=== PATIENT | male | born 1975 | race Two or more races ===

== ENCOUNTER 2024-11-10 15:14 | Inpatient (IN) | payer MEDICAID, OTHER ==
[~2024-11-10] VITALS: Ht 175.3 cm; Wt 80.0 kg
--- NOTE | 2024-11-10 16:07 | DVH ---
Exam: CT CT AB PEL WO CON-NO ORAL OR IV History: abd pain Comparison Study: None available at time of dictation. TECHNIQUE: Multidetector CT of the abdomen was performed from lung bases to pubic symphysis. Imaging was performed without IV contrast. Axial, coronal and sagittal multiplanar reformats were obtained fr om the axial data set by the technologist. Radiation Dose Information: CT Dose: CTDI volume is 8.5 mGy. Dose-length product is 464.23 mGy*cm FINDINGS: Evaluation of solid organs is limited due to lack of intravenous contrast use. Findings: Lung Bases: No acute or significant lung base finding. Normal heart size. No pleural or pericardial effusion. Liver: The liver is normal in size. No focal lesions. Gallbladder and Biliary Tree: Questionable poorly calcified gallstones consider gallbladder ultrasoun d for further evaluation Spleen: Unremarkable Pancreas: The pancreas is grossly normal in appearance. Adrenal Glands: Unremarkable Kidneys: 3-4 mm nonobstructing left renal calculus mild right hydronephrosis Bladder: 3-4 mm calculus in the bladder on the right consistent with recently passed calculus Bowel: The stomach is grossly normal in appearance. Small bowel and colon are normal in caliber and d istribution. The appendix is not visualized; however, no secondary findings of acute appendicitis id entified. Ascites: Absent Lymphadenopathy: No mesenteric, retroperitoneal or periportal lymphadenopathy. Abdominal Wall and Mesentery: Unremarkable. Vasculature: The visualized abdominal aorta is normal in size and caliber. Evaluation of abdominal a nd pelvic vessels is limited due to lack of intravenous contrast. Pelvic Organs: Unremarkable Musculoskeletal: No aggressive focal bony lesions, acute fractures or dislocation. Soft tissues: Unremarkable IMPRESSION: 1. Mild right hydronephrosis with 3-4 mm calculus in the bladder on the right consistent with a recen tly passed calculus. 2. 3-4 mm nonobstructing calculus left kidney 3. Questionable poorly calcified gallstones if right upper quadrant pain is of clinical concern recom mend gallbladder ultrasound. 4. No findings of bowel obstruction. 5. Stool noted throughout the colon Radiation optimization: All CT scans at this facility use at least one of these dose optimization te chniques: automated exposure control mA and/or kV adjustment per patient size (includes targeted exa ms where dose is matched to clinical indication) or iterative reconstruction.
[2024-11-10 16:10] LABS: Basophils # (auto) 0 10 ^3/uL (0-0.2); Basophils % (auto) 0.4 % (0.0-2.0); Eosinophils # (auto) 0.5 10 ^3/uL (0-0.8); Hematocrit 46.4 % (41.0-53.0); Hemoglobin 15.4 g/dL (13.5-17.5); Lymphocytes # (auto) 1.7 10 ^3/uL (0.4-5.4); Mean Corpuscular Hemoglobin 27.6 pg (28.0-32.0); Mean Corpuscular Hgb Conc. 33.2 g/dL (32.0-36.0); Monocytes # (auto) 0.8 10 ^3/uL (0-1.3); Monocytes % (auto) 7.1 % (0.0-12.0); Neutrophils # (auto) 8.3 10 ^3/uL (1.6-8.6); Neutrophils % (auto) 73.5 % (37.0-80.0); Nucleated Red Blood Cells % 0.2 %; Platelet Count (auto) 261 10^3/uL (140-450); Red Blood Cells 5.59 10^6/uL (4.5-5.90); Red Cell Distribution Width 13.4 % (11.8-14.3); White Blood Cell 11.3 10^3/uL (4.4-10.8)
[2024-11-10 16:31] LABS: Anion Gap 7 (5-15); BUN/Creatinine Ratio 13.5 (10.0-20.0); Bilirubin, Total 0.5 mg/dL (0.2-1.0); Calcium 10.1 mg/dL (8.7-10.4); Carbon Dioxide 27 mmol/L (20-31); Chloride 105 mmol/L (98-107); Lipase 34 U/L (12-53); Sodium 139 mmol/L (136-145)
[2024-11-10 16:34] LABS: Alanine Aminotransferase 59 U/L (7-40); Albumin 5.1 g/dL (3.2-4.8); Alkaline Phosphatase 136 U/L (46-116); Aspartate Aminotransferase 49 U/L (13-40); Blood Urea Nitrogen 23 mg/dL (9-23); Glucose 113 mg/dL (74-106); Total Protein 8.5 g/dL (5.7-8.2)
--- NOTE | 2024-11-10 16:49 | ED.PDOC ---
General HPI Comments Christiano: HPI: Poor Historian. 49-year-old male presents to emergency department for right-sided abdominal pain right flank pain right anterior abdomen pain constant that started last night and got worse today. Patient has associated nausea and vomiting no diarrhea. Patient appears uncomfortable. No alleviating or precipitating factors. Past Medical History: Denies Past Surgical History: Denies REVIEW OF SYSTEMS: CONSTITUTIONAL: Denies acute: fever, diaphoresis, chills, HEAD: Denies acute: headache, photophobia Eyes: Denies acute: Double vision, vision loss, eye pain, eye discharge. EARS: Denies acute: tinnitus, hearing loss, ear discharge, ear pain, THROAT: Denies acute: sore throat, swelling, difficulty swallowing , pain with swallowing, change in voice. NECK: Denies acute: neck pain, neck swelling, stiff neck. HEART: Denies acute : chest pain, palpitations, LUNGS: Denies acute: SOB, wheezing, cough, hemoptysis ABDOMEN: Denies acute: diarrhea, melena , hematemesis, hematochezia SKIN: Denies acute: rash, redness, lesions, itchiness. EXTREMITIES: Denies acute: calf pain, numbness, tingling, weakness, denies pain in extremity. Denies acute: Low back pain. Neuro: Denies acute: focal neurological deficit, motor or sensory focal neurological deficit, tremors, seizure like activity, confusion, dizziness, change in mental status, loss of bowel or bladder function, cauda equina like symptoms. : Denies acute: dysuria, hematuria, increase in urinary frequency. PSYCH: Denies acute: hallucination, suicidal ideation, homicidal ideation. PHYSICAL EXAM: General: ---moderate to severe-----acute distress, awake and alert. Head: normocephalic, atraumatic. Neck: supple, trachea is midline, no swelling. Throat: Normal phonation. Eyes:, no erythema, no purulent discharge, no proptosis, no icterus. Heart: regular rate, regular rhythm, no significant murmur appreciated. Lungs: no apparent respiratory distress, Able to speak in full sentences. No wheezing, no rhonchi, no crackles. No stridors Clear to auscultation bilaterally. Abdomen: Right-sided tender to palpation, non distended, soft, no guarding, no rebound, + bowel sounds. Neuro: Awake, Alert, oriented to name, self, situation, follows commands GCS=15. Speech is normal. Skin: no petechia, no purpura, no cyanosis, non-pale, not jaundice. Lower extremities: --no - Pitting edema no deformity, no focal swelling, no calf TTP. Makes eye contact. moves all four extremities. Face: no apparent facial droop. Right CVA tenderness to percussion . Ambulating in the ED independently. ED COURSE: Chief Complaint: Abdominal Pain Time Seen by MD: 15:21 Reviewed notes: Nurses Notes, Allergies Allergies: Coded Allergies: NO KNOWN ALLERGIES (Unverified , 11/10/24) Home Meds Active Scripts Tamsulosin Hcl (Tamsulosin Hcl) 0.4 Mg Cap, 0.4 MG PO DAILY for 30 Days, #30 CAP Prov:NENA CARRANZA 11/12/24 Ibuprofen (Ibuprofen) 400 Mg Tab, 400 MG PO BID for 5 Days, #10 TAB Prov:NENA CARRANZA 11/12/24 Ciprofloxacin Hcl (Cipro) 500 Mg Tab, 500 MG PO BID for 7 Days, #14 TAB Prov:NENA CARRANZA 11/12/24 Information Source: Patient Mode of Arrival: Ambulatory Was a procedure done? Was a procedure done?: No Differential Diagnosis Kidney stone (Female): N/A Kidney stone (Male): Other (Flank Pain;DDX include Nephrolethiasis, obstructive uropathy, kidney cancer, renal infarct, intraabdominal neoplasm, lower lobe pneumonia, retroperitoneal hemorrhage, pancreatitis, aneurysm, dissection, musculoskeletal, rib contusion/trauma, hematoma, PYLONEPHRITIS, muscle strain, spinal disease. IN A FEMALE) X-Ray, Labs, Meds, VS Vital Signs Date Time Temp Pulse Resp B/P (MAP) Pulse Ox O2 Delivery O2 Flow Rate FiO2 11/11/24 00:20 98.7 82 20 130/70 (90) 95 98.7 11/10/24 21:06 74 20 100 Room Air* 0 21 11/10/24 20:13 142/91 11/10/24 19:39 98.7 73 20 142/96 (111) 95 98.7 11/10/24 15:35 98.5 71 22 142/95 (111) 95 98.5 Lab Test 11/10/24 21:25 11/10/24 18:15 11/10/24 17:34 11/10/24 15:57 Range/Units Troponin I High Sensitivity 64 *H 68 *H 75 *H </=54 ng/L Urine Color Yellow Yellow Urine Clarity Clear Clear Urine pH 6.0 5.0-9.0 Urine Specific [place] 1.039 H 1.001-1.035 Urine Protein 1+ H Negative Urine Ketones Trace Negative Urine Blood 2+ H Negative /uL Urine Nitrite Negative Negative Urine Bilirubin Negative Negative Urine Urobilinogen Normal Negative mg/dL Urine Leukocyte Esterase Negative Negative /uL Urine RBC 17 0 - 3 /hpf Urine Microscopic WBC 2 0-3 /HPF Urine Squamous Epithelial Cells None seen <5 /hpf Urine Bacteria None seen None Seen /hpf Urine Mucus Few None Seen Urine Glucose Normal Normal mg/dL White Blood Count 11.3 H 4.4-10.8 10^3/uL Red Blood Count 5.59 4.5-5.90 10^6/uL Hemoglobin 15.4 13.5-17.5 g/dL Hematocrit 46.4 41.0-53.0 % Mean Corpuscular Volume 83.0 80.0-100.0 fL Mean Corpuscular Hemoglobin 27.6 L 28.0-32.0 pg Mean Corpuscular Hemoglobin Concent 33.2 32.0-36.0 g/dL Red Cell Distribution Width 13.4 11.8-14.3 % Platelet Count 261 140-450 10^3/uL Mean Platelet Volume 8.1 6.9-10.8 fL Neutrophils (%) (Auto) 73.5 37.0-80.0 % Lymphocytes (%) (Auto) 15.0 10.0-50.0 % Monocytes (%) (Auto) 7.1 0.0-12.0 % Eosinophils (%) (Auto) 4.0 0.0-7.0 % Basophils (%) (Auto) 0.4 0.0-2.0 % Neutrophils # (Auto) 8.3 1.6-8.6 10 ^3/uL Lymphocytes # (Auto) 1.7 0.4-5.4 10 ^3/uL Monocytes # (Auto) 0.8 0-1.3 10 ^3/uL Eosinophils # (Auto) 0.5 0-0.8 10 ^3/uL Basophils # (Auto) 0 0-0.2 10 ^3/uL Nucleated Red Blood Cells 0.2 % Sodium Level 139 136-145 mmol/L Potassium Level 4.0 3.5-5.1 mmol/L Chloride Level 105 98-107 mmol/L Carbon Dioxide Level 27 20-31 mmol/L Anion Gap 7 5-15 Blood Urea Nitrogen 23 9-23 mg/dL Creatinine 1.70 H 0.700-1.30 mg/dL Glomerular Filtration Rate Calc 49 >90 mL/min BUN/Creatinine Ratio 13.5 10.0-20.0 Serum Glucose 113 H 74-106 mg/dL Lactic Acid Level 1.5 0.4-2.0 mmol/L Calcium Level 10.1 8.7-10.4 mg/dL Total Bilirubin 0.5 0.2-1.0 mg/dL Aspartate Amino Transferase (AST) 49 H 13-40 U/L Alanine Aminotransferase (ALT) 59 H 7-40 U/L Alkaline Phosphatase 136 H 46-116 U/L Total Protein 8.5 H 5.7-8.2 g/dL Albumin 5.1 H 3.2-4.8 g/dL Lipase 34 12-53 U/L [place] [id number] Ph: [phone] DIAGNOSTIC IMAGING Diagnostic Imaging Report : [id number] Signed PATIENT: SHARMIN MARX ACCT: [id number] UNIT: [id number] : 1975 LOC: ER ROOM / BED: / AGE / SEX: 49 / M ADM STATUS: REG ER SERVICE 1531 ORDERING PHYSICIAN: TAMIE GARCÍA DO PROCEDURE(s): ABPL - CT AB PEL WO CON-NO ORAL OR IV REASON: abd pain ORDER NUMBER(s): [id number], ACCESSION NUMBER(s): [id number] Exam: CT CT AB PEL WO CON-NO ORAL OR IV History: abd pain Comparison Study: None available at time of dictation. TECHNIQUE: Multidetector CT of the abdomen was performed from lung bases to pubic symphysis. Imaging was performed without IV contrast. Axial, coronal and sagittal multiplanar reformats were obtained from the axial data set by the technologist. Radiation Dose Information: CT Dose: CTDI volume is 8.5 mGy. Dose-length product is 464.23 mGy*cm FINDINGS: Evaluation of solid organs is limited due to lack of intravenous contrast use. Findings: Lung Bases: No acute or significant lung base finding. Normal heart size. No pleural or pericardial effusion. Liver: The liver is normal in size. No focal lesions. Gallbladder and Biliary Tree: Questionable poorly calcified gallstones consider gallbladder ultrasound for further evaluation Spleen: Unremarkable Pancreas: The pancreas is grossly normal in appearance. Adrenal Glands: Unremarkable Kidneys: 3-4 mm nonobstructing left renal calculus mild right hydronephrosis Bladder: 3-4 mm calculus in the bladder on the right consistent with recently passed calculus Bowel: The stomach is grossly normal in appearance. Small bowel and colon are normal in caliber and distribution. The appendix is not visualized; however, no secondary findings of acute appendicitis identified. Ascites: Absent Lymphadenopathy: No mesenteric, retroperitoneal or periportal lymphadenopathy. Abdominal Wall and Mesentery: Unremarkable. Vasculature: The visualized abdominal aorta is normal in size and caliber. Evaluation of abdominal and pelvic vessels is limited due to lack of intravenous contrast. Pelvic Organs: Unremarkable Musculoskeletal: No aggressive focal bony lesions, acute fractures or dislocation. Soft tissues: Unremarkable IMPRESSION: 1. Mild right hydronephrosis with 3-4 mm calculus in the bladder on the right consistent with a recently passed calculus. 2. 3-4 mm nonobstructing calculus left kidney 3. Questionable poorly calcified gallstones if right upper quadrant pain is of clinical concern recommend gallbladder ultrasound. 4. No findings of bowel obstruction. 5. Stool noted throughout the colon Radiation optimization: All CT scans at this facility use at least one of these dose optimization techniques: automated exposure control mA and/or kV adjustment per patient size (includes targeted exams where dose is matched to cl inical indication) or iterative reconstruction. ATED BY: ANNA SANTA Jr., DO DICTATED DATE/TIME: 11/10/241604 SIGNED BY: ANNA SANTA Jr., SIGNED DATE/TIME: 11/10/241604 CC: Time of 1ST Reevaluation: 17:28 (Urinalysis still pending) Reevaluation 1ST: Improved Patient Education/Counseling: Diagnosis, Treatment Family Education/Counseling: Other Comments Patient presented with the above HPI.------workup was initiated. patient was found with the above mentioned diagnosis. the following medications were ordered: please refer to order lists of meds and tests obtained by myself Dr. García. Patient ED course and VS have been stabilized. Patient has been reassessed in the ED and remained in a stable condition. Pertinent incidental findings were discussed with the patient and/or family. Patient/family voices understanding and is agreeable with plan. Patient has been observed in the ED adequate length of time to insure improvement/stability. Escalation of care considered: Consideration of escalation to observation or admission Patient was found with incidental elevation of his troponin. Patient was given aspirin. Patient was ADMITTED to the medicine team for further evaluation and treatment of their presentation. All the reports of any imaging studies that were ordered by myself were reviewed by myself. Departure 1 Departure Time of Disposition: 17:27 Impression: Primary Impression: Hydronephrosis, right Additional Impressions: Hydronephrosis with renal and ureteral calculous obstruction Elevated troponin Disposition: ADMITTED INPATIENT Admit to: Tele Condition: Guarded Additional Instructions: [place] [address] Ph: [phone] DIAGNOSTIC IMAGING Diagnostic Imaging Report : [id number] Signed PATIENT: SHARMIN MARX ACCT: [id number] UNIT: [id number] : 1975 LOC: ER ROOM / BED: / AGE / SEX: 49 / M ADM STATUS: REG ER SERVICE 1531 ORDERING PHYSICIAN: TAMIE GARCÍA DO PROCEDURE(s): ABPL - CT AB PEL WO CON-NO ORAL OR IV REASON: abd pain ORDER NUMBER(s): [id number], ACCESSION NUMBER(s): [id number] Exam: CT CT AB PEL WO CON-NO ORAL OR IV History: abd pain Comparison Study: None available at time of dictation. TECHNIQUE: Multidetector CT of the abdomen was performed from lung bases to pubic symphysis. Imaging was performed without IV contrast. Axial, coronal and sagittal multiplanar reformats were obtained from the axial data set by the technologist. Radiation Dose Information: CT Dose: CTDI volume is 8.5 mGy. Dose-length product is 464.23 mGy*cm FINDINGS: Evaluation of solid organs is limited due to lack of intravenous contrast use. Findings: Lung Bases: No acute or significant lung base finding. Normal heart size. No pleural or pericardial effusion. Liver: The liver is normal in size. No focal lesions. Gallbladder and Biliary Tree: Questionable poorly calcified gallstones consider gallbladder ultrasound for further evaluation Spleen: Unremarkable Pancreas: The pancreas is grossly normal in appearance. Adrenal Glands: Unremarkable Kidneys: 3-4 mm nonobstructing left renal calculus mild right hydronephrosis Bladder: 3-4 mm calculus in the bladder on the right consistent with recently passed calculus Bowel: The stomach is grossly normal in appearance. Small bowel and colon are normal in caliber and distribution. The appendix is not visualized; however, no secondary findings of acute appendicitis identified. Ascites: Absent Lymphadenopathy: No mesenteric, retroperitoneal or periportal lymphadenopathy. Abdominal Wall and Mesentery: Unremarkable. Vasculature: The visualized abdominal aorta is normal in size and caliber. Evaluation of abdominal and pelvic vessels is limited due to lack of intravenous contrast. Pelvic Organs: Unremarkable Musculoskeletal: No aggressive focal bony lesions, acute fractures or dislocation. Soft tissues: Unremarkable IMPRESSION: 1. Mild right hydronephrosis with 3-4 mm calculus in the bladder on the right consistent with a recently passed calculus. 2. 3-4 mm nonobstructing calculus left kidney 3. Questionable poorly calcified gallstones if right upper quadrant pain is of clinical concern recommend gallbladder ultrasound. 4. No findings of bowel obstruction. 5. Stool noted throughout the colon Radiation optimization: All CT scans at this facility use at least one of these dose optimization techniques: automated exposure control mA and/or kV adjustment per patient size (includes targeted exams where dose is matched to clinical indication) or iterative reconstruction. ATED BY: ANNA SANTA Jr., DO DICTATED DATE/TIME: 11/10/241604 SIGNED BY: ANNA SANTA Jr., SIGNED DATE/TIME: 11/10/241604 CC: e-Prescriptions Tamsulosin Hcl (Tamsulosin Hcl) 0.4 Mg Cap 0.4 MG PO DAILY for 30 Days, #30 CAP Prov: NENA CARRANZA RESIDENT 11/12/24 Ibuprofen (Ibuprofen) 400 Mg Tab 400 MG PO BID for 5 Days, #10 TAB Prov: NENA CARRANZA RESIDENT 11/12/24 Ciprofloxacin Hcl (Cipro) 500 Mg Tab 500 MG PO BID for 7 Days, #14 TAB Prov: NENA CARRANZA RESIDENT 11/12/24 Discharged With: Self Critical Care Note Critical Care Time?: Yes (45 min-critical care time only) I personally scribed for TAMIE GARCÍA DO ([email or web address]) on 11/10/24 at 21:00. Electronically submitted by Ashley Larson ([email or web address]). TAMIE GARCÍA DO Nov 10, 2024 16:49
[2024-11-10 19:18] LABS: Urine Bacteria None Seen /hpf (None Seen)
[2024-11-10 19:40] LABS: Urine Blood 2+ /uL (Negative); Urine Clarity Clear (Clear); Urine Color Yellow (Yellow); Urine Mucus FEW (None Seen); Urine Protein, UAD 1+ (Negative); Urine Specific Gravity 1.039 (1.001-1.035); Urine Squamous Epithelial Cell None Seen /hpf (<5); Urine Urobilinogen Normal (Negative); Urine WBC 2 /HPF (0-3)
[2024-11-10] MEDS: TAMSULOSIN HYDROCHLORIDE 0.4 MG CAP PO ONE (19:46)
[2024-11-10] MEDS: ASPirin-EC 325mg tab PO ONE (19:46)
[2024-11-10] MEDS: ONDANSETRON HCL 4 MG/2 ML VIAL IV ONE (20:10)
[2024-11-10] MEDS: SODIUM CHLORIDE 0.9% 1,000 ML IV ONE (20:10)
[2024-11-10] MEDS: fentaNYL CITRATE 100 MCG/2 ML VL IV ONE (20:13)
[2024-11-10 21:06] VITALS: PULSE 74; RESP 20; O2SAT 100
[2024-11-11] VITALS (9 sets, daily range): BP systolic 103–124; BP diastolic 60–88; PULSE 63–77; RESP 17–20; TEMP 98–98.8; O2SAT 96–98
[2024-11-11] MEDS ORDERED: NITROGLYCERIN 0.4 MG SL TAB SL PRN (03:00)
[2024-11-11] MEDS ORDERED: MORPHINE SULFATE INJ 2 MG/ml SYRG IV PRN (03:00)
[2024-11-11] MEDS: KETOROLAC TROMETH 30 MG/ML 1ML VIAL IV PRN (04:55)
[2024-11-11] MEDS: LACTATED RINGER'S 1,000 ML IV SCH (05:00)
--- NOTE | 2024-11-11 05:17 | DVHHPRES ---
History of Present Illness Resident Creating Document: KECIA ALEXANDER RESIDENT Reason for Visit: RUQ History of Present Illness This is a 49-year-old male with no known past medical history presented to the ER today with pain that originated on the right upper quadrant radiates to the back and to the groin area. Pain started about few days ago and progressive y became worse. Patient described the pain as rated 8/10 with an associated nausea and vomiting but no diarrhea. At the time of my investigation with the patient, his pain has subsided although he seems unwell. Initial lab showed elevated WBC, elevated heart rate over it blood pressure otherwise unremarkable. Past Medical History: None Past Surgical History: None Family history: noncontributory: Social history: lives at home, does not drink or smoke Review of Systems Review of Systems Constitutional: Denies fever, chills; feeling of malaise HEENT: Denies headache, ear pain, ear discharges, conjunctivitis, nasal discharge throat pain Cardiovascular: Denies chest pain, palpitation, orthopnea, PND, or pedal edema Respiratory: Denies shortness of breath, cough, sputum production, hemoptysis, GI: RUQ abdominal pain, nausea, vomiting; diarrhea, hematemesis, hematochezia, : Denies frequency, urgency, hematuria, Endocrine: Denies unintentional weight gain or weight loss, feeling of hot flashes, [place]: Denies easy bruising, bleeding disorders, epistaxis Musculoskeletal: Denies joint pains, muscle aches Psych: No evidence of depression, ana, suicidal ideation Allergies: Coded Allergies: NO KNOWN ALLERGIES (Unverified , 11/10/24) Medications Current Medications Medications Dose Ordered Sig/Rachele Route Start Time Stop Time Status Last Admin Dose Admin Nitroglycerin 0.4 mg Q5MINP PRN SL 11/11/24 03:00 Morphine Sulfate 2 mg Q30M PRN IV 11/11/24 03:00 Exam Vital Signs Vital Signs Date Time Temp Pulse Resp B/P (MAP) Pulse Ox O2 Delivery O2 Flow Rate FiO2 11/11/24 04:20 98.4 74 18 124/88 (100) 96 98.4 11/10/24 21:06 Room Air* 0 21 Exam General Appearance: Alert, Oriented X3, Cooperative, moderate acute distress HEENT: Atraumatic, PERRLA, EOMI, Mucous membrane moist/pink Respiratory: Clear to auscultation, Normal air movement Cardiovascular: Regular rate, Normal S1, Normal S2, No murmurs, no chest wall tenderness Abdominal: Tender in the RUQ plane and right cva, reduced bowel sounds present, no scars noted Extremities: No clubbing, No cyanosis, No edema, Normal pulses, No tenderness/swelling Skin: No rashes, No breakdown, No significant lesion Neuro: Normal gait, Normal speech, Strength at 5/5 X4 ext, Normal tone, Sensation intact, Cranial nerves 3-12 NL, Reflexes 2+ Psych/Mental Status: Mental status NL, Mood NL Labs/Xrays Labs Test 11/10/24 21:25 11/10/24 17:34 11/10/24 15:57 Range/Units Troponin I High Sensitivity 64 *H </=54 ng/L Urine Color Yellow Yellow Urine Clarity Clear Clear Urine pH 6.0 5.0-9.0 Urine Specific [place] 1.039 H 1.001-1.035 Urine Protein 1+ H Negative Urine Ketones Trace Negative Urine Blood 2+ H Negative /uL Urine Nitrite Negative Negative Urine Bilirubin Negative Negative Urine Urobilinogen Normal Negative mg/dL Urine Leukocyte Esterase Negative Negative /uL Urine RBC 17 0 - 3 /hpf Urine Microscopic WBC 2 0-3 /HPF Urine Squamous Epithelial Cells None seen <5 /hpf Urine Bacteria None seen None Seen /hpf Urine Mucus Few None Seen Urine Glucose Normal Normal mg/dL White Blood Count 11.3 H 4.4-10.8 10^3/uL Red Blood Count 5.59 4.5-5.90 10^6/uL Hemoglobin 15.4 13.5-17.5 g/dL Hematocrit 46.4 41.0-53.0 % Mean Corpuscular Volume 83.0 80.0-100.0 fL Mean Corpuscular Hemoglobin 27.6 L 28.0-32.0 pg Mean Corpuscular Hemoglobin Concent 33.2 32.0-36.0 g/dL Red Cell Distribution Width 13.4 11.8-14.3 % Platelet Count 261 140-450 10^3/uL Mean Platelet Volume 8.1 6.9-10.8 fL Neutrophils (%) (Auto) 73.5 37.0-80.0 % Lymphocytes (%) (Auto) 15.0 10.0-50.0 % Monocytes (%) (Auto) 7.1 0.0-12.0 % Eosinophils (%) (Auto) 4.0 0.0-7.0 % Basophils (%) (Auto) 0.4 0.0-2.0 % Neutrophils # (Auto) 8.3 1.6-8.6 10 ^3/uL Lymphocytes # (Auto) 1.7 0.4-5.4 10 ^3/uL Monocytes # (Auto) 0.8 0-1.3 10 ^3/uL Eosinophils # (Auto) 0.5 0-0.8 10 ^3/uL Basophils # (Auto) 0 0-0.2 10 ^3/uL Nucleated Red Blood Cells 0.2 % Sodium Level 139 136-145 mmol/L Potassium Level 4.0 3.5-5.1 mmol/L Chloride Level 105 98-107 mmol/L Carbon Dioxide Level 27 20-31 mmol/L Anion Gap 7 5-15 Blood Urea Nitrogen 23 9-23 mg/dL Creatinine 1.70 H 0.700-1.30 mg/dL Glomerular Filtration Rate Calc 49 >90 mL/min BUN/Creatinine Ratio 13.5 10.0-20.0 Serum Glucose 113 H 74-106 mg/dL Lactic Acid Level 1.5 0.4-2.0 mmol/L Calcium Level 10.1 8.7-10.4 mg/dL Total Bilirubin 0.5 0.2-1.0 mg/dL Aspartate Amino Transferase (AST) 49 H 13-40 U/L Alanine Aminotransferase (ALT) 59 H 7-40 U/L Alkaline Phosphatase 136 H 46-116 U/L Total Protein 8.5 H 5.7-8.2 g/dL Albumin 5.1 H 3.2-4.8 g/dL Lipase 34 12-53 U/L Assessment/Plan Assessment/Plan Assessment Possible cholecystitis as well, positive crenshaw sign Questionable poorly calcified gallstones if right upper quadrant pain is of clinical concern recommend gallbladder ultrasound Nephrolithiasis Mild right hydronephrosis with 3-4 mm calculus in the bladder on the right consistent with a recently passed calculus. 3-4 mm nonobstructing calculus left kidney Acute Kidney injured Plan Pain medication with ketorolac Ordered ultrasound of the gallbladder Ceftriaxone plus metronidazole given a high WBC IV hydration with Ringer's lactate. Depending on the ultrasound studies we will place an order for GI Renal US DVT prophylaxis: Lovenox Keeping patient NPO in case surgery decides to get patient in NSR dependent in the lab Goal of care discussed for more than 30 minutes: Full code Case Case and plan discussed with Dr. Bangura Plan discussed with: Patient Date of Service: Nov 11, 2024 Billing Provider: MARGARET BANGURA MD Common Visit Codes: [id number] INP/OBS CARE (HIGH) KECIA ALEXANDER RESIDENT Nov 11, 2024 05:17 MARGARET BANGURA MD Nov 11, 2024 14:46
[2024-11-11] MEDS: cefTRIAXone 1GM/50ML D5W 50 ML IV ONE (06:26)
[2024-11-11 06:27] LABS: INR 0.91 (0.9-1.15); Partial Thromboplastin Time 27.3 SEC (24.5-34.5); Prothrombin Time 9.7 sec (9.3-11.8)
[2024-11-11 06:31] LABS: Anion Gap 9 (5-15); BUN/Creatinine Ratio 14.6 (10.0-20.0); Blood Urea Nitrogen 22 mg/dL (9-23); Calcium 9.5 mg/dL (8.7-10.4); Carbon Dioxide 26 mmol/L (20-31); Chloride 105 mmol/L (98-107); Potassium 3.9 mmol/L (3.5-5.1); Sodium 140 mmol/L (136-145); Total Protein 7.7 g/dL (5.7-8.2)
[2024-11-11 06:32] LABS: Albumin 4.6 g/dL (3.2-4.8); Bilirubin, Total 0.6 mg/dL (0.2-1.0)
[2024-11-11 06:35] LABS: Alanine Aminotransferase 59 U/L (7-40); Alkaline Phosphatase 123 U/L (46-116); Aspartate Aminotransferase 43 U/L (13-40); Glucose 114 mg/dL (74-106)
[2024-11-11] MEDS ORDERED: CIPROFLOXACIN 400MG/200ML 200 ML IV SCH (07:15)
[2024-11-11 07:41] LABS: Basophils # (auto) 0 10 ^3/uL (0-0.2); Basophils % (auto) 0.3 % (0.0-2.0); Eosinophils # (auto) 0.5 10 ^3/uL (0-0.8); Eosinophils % (auto) 4.9 % (0.0-7.0); Hematocrit 40.3 % (41.0-53.0); Hemoglobin 13.8 g/dL (13.5-17.5); Lymphocytes % (auto) 19.2 % (10.0-50.0); Mean Corpuscular Hemoglobin 28.6 pg (28.0-32.0); Mean Corpuscular Hgb Conc. 34.2 g/dL (32.0-36.0); Mean Corpuscular Volume 83.5 fL (80.0-100.0); Monocytes # (auto) 0.8 10 ^3/uL (0-1.3); Monocytes % (auto) 8.3 % (0.0-12.0); Neutrophils # (auto) 6.8 10 ^3/uL (1.6-8.6); Neutrophils % (auto) 67.3 % (37.0-80.0); Platelet Count (auto) 227 10^3/uL (140-450); Red Blood Cells 4.82 10^6/uL (4.5-5.90); Red Cell Distribution Width 13.2 % (11.8-14.3); White Blood Cell 10.2 10^3/uL (4.4-10.8)
[2024-11-11] MEDS: metroNIDAZOLE 500MG/100ML 100 ML IV SCH (09:03)
[2024-11-11] MEDS: PANTOPRAZOLE 40 MG/10 ML VIAL INJ IV SCH (09:08)
--- NOTE | 2024-11-11 09:58 | DVH ---
INDICATION: RUQ pain TECHNIQUE: Multiple real-time sonographic images were obtained of the right upper quadrant. COMPARISON: None FINDINGS: The liver demonstrates homogenous echotexture without focal mass lesions. The liver measure s 16.7cm. There is no intrahepatic or extrahepatic ductal dilatation. The common duct measures 0.2 mm. Gallstones notd. The gallbladder wall measures 1.1 mm and is within normal limits. The right kidney measures 11 cm. The right kidney is normal in contour, size, and shape. The echogen icity is normal. There is no hydronephrosis. The pancreas is not well visualized due to overlying bowel gas. IMPRESSION: Gallstones Trace pericholecystic fluid
--- NOTE | 2024-11-11 10:02 | DVH ---
INDICATION: b/l ureter and bladder for intraluminal obstruction TECHNIQUE: Multiple real-time sonographic images of the kidneys and bladder were obtained. COMPARISON: None FINDINGS: The right kidney measures 11 cm in length, which is normal in size. There is normal echogen icity of the right kidney. Mild hydronephrosis. The left kidney measures 12 cm in length, which is normal in size. There is normal echogenicity of th e left kidney. No hydronephrosis. IMPRESSION: Mild right hydronephrosis.
[2024-11-11] MEDS: CIPROFLOXACIN 400MG/200ML 200 ML IV SCH (11:36)
--- NOTE | 2024-11-11 14:50 | DVHINCON2 ---
Date of service: Nov 11, 2024 Family History: Patient reports no known family medical history. Allergies: Coded Allergies: NO KNOWN ALLERGIES (Unverified , 11/10/24) Current Medications Current Medications Medications (Trade) Dose Ordered Sig/Rachele Route PRN Reason Start Time Stop Time Status Last Admin Nitroglycerin (Ntrostat Sublingual) 0.4 mg Q5MINP PRN SL FOR CHEST PAIN 11/11/24 03:00 Morphine Sulfate 2 mg Q30M PRN IV FOR CHEST PAIN 11/11/24 03:00 Ketorolac Tromethamine (Toradol Injection) 15 mg Q6HPRN PRN IV MODERATE PAIN (4-6 PAIN SCALE) 11/11/24 05:00 11/16/24 04:59 11/11/24 04:55 Lactated Ringer's 1,000 ml @ 100 mls/hr Q10H IV 11/11/24 05:00 11/11/24 05:00 Ceftriaxone Sodium 50 ml @ 100 mls/hr DAILY@09 IV 11/12/24 09:00 11/11/24 07:05 DC Tamsulosin HCl (Flomax) 0.4 mg QPM PO 11/11/24 18:00 Pantoprazole Sodium (Protonix) 40 mg DAILY IV 11/11/24 10:00 11/11/24 09:08 Ciprofloxacin 200 ml @ 200 mls/hr Q12HR IV 11/11/24 07:15 11/11/24 07:23 DC Metronidazole 100 ml @ 100 mls/hr Q8HR IV 11/11/24 07:15 11/11/24 09:03 Ciprofloxacin 200 ml @ 200 mls/hr Q12HR@0900,2100 IV 11/11/24 09:00 11/11/24 11:36 Vital Signs Vital Signs Date Time Temp Pulse Resp B/P (MAP) Pulse Ox O2 Delivery O2 Flow Rate FiO2 11/11/24 13:00 98.8 63 20 113/62 (79) 97 98.8 11/11/24 08:00 Room Air* 0 21 Labs/Diagnostic Data Labs Test 11/11/24 05:17 11/10/24 21:25 11/10/24 17:34 11/10/24 15:57 Range/Units White Blood Count 10.2 4.4-10.8 10^3/uL Red Blood Count 4.82 4.5-5.90 10^6/uL Hemoglobin 13.8 13.5-17.5 g/dL Hematocrit 40.3 #L 41.0-53.0 % Mean Corpuscular Volume 83.5 80.0-100.0 fL Mean Corpuscular Hemoglobin 28.6 28.0-32.0 pg Mean Corpuscular Hemoglobin Concent 34.2 32.0-36.0 g/dL Red Cell Distribution Width 13.2 11.8-14.3 % Platelet Count 227 140-450 10^3/uL Mean Platelet Volume 8.7 6.9-10.8 fL Neutrophils (%) (Auto) 67.3 37.0-80.0 % Lymphocytes (%) (Auto) 19.2 10.0-50.0 % Monocytes (%) (Auto) 8.3 0.0-12.0 % Eosinophils (%) (Auto) 4.9 0.0-7.0 % Basophils (%) (Auto) 0.3 0.0-2.0 % Neutrophils # (Auto) 6.8 1.6-8.6 10 ^3/uL Lymphocytes # (Auto) 2.0 0.4-5.4 10 ^3/uL Monocytes # (Auto) 0.8 0-1.3 10 ^3/uL Eosinophils # (Auto) 0.5 0-0.8 10 ^3/uL Basophils # (Auto) 0 0-0.2 10 ^3/uL Nucleated Red Blood Cells 0.0 % Prothrombin Time 9.7 9.3-11.8 sec Prothrombin Time INR 0.91 0.9-1.15 Activated Partial Thromboplast Time 27.3 24.5-34.5 SEC Sodium Level 140 136-145 mmol/L Potassium Level 3.9 3.5-5.1 mmol/L Chloride Level 105 98-107 mmol/L Carbon Dioxide Level 26 20-31 mmol/L Anion Gap 9 5-15 Blood Urea Nitrogen 22 9-23 mg/dL Creatinine 1.51 H 0.700-1.30 mg/dL Glomerular Filtration Rate Calc 57 >90 mL/min BUN/Creatinine Ratio 14.6 10.0-20.0 Serum Glucose 114 H 74-106 mg/dL Lactic Acid Level 1.3 0.4-2.0 mmol/L Calcium Level 9.5 8.7-10.4 mg/dL Total Bilirubin 0.6 0.2-1.0 mg/dL Aspartate Amino Transferase (AST) 43 H 13-40 U/L Alanine Aminotransferase (ALT) 59 H 7-40 U/L Alkaline Phosphatase 123 H 46-116 U/L C-Reactive Protein High Sensitivity 2.77 H <1.0 mg/dL Total Protein 7.7 5.7-8.2 g/dL Albumin 4.6 3.2-4.8 g/dL Troponin I High Sensitivity 64 *H </=54 ng/L Urine Color Yellow Yellow Urine Clarity Clear Clear Urine pH 6.0 5.0-9.0 Urine Specific [place] 1.039 H 1.001-1.035 Urine Protein 1+ H Negative Urine Ketones Trace Negative Urine Blood 2+ H Negative /uL Urine Nitrite Negative Negative Urine Bilirubin Negative Negative Urine Urobilinogen Normal Negative mg/dL Urine Leukocyte Esterase Negative Negative /uL Urine RBC 17 0 - 3 /hpf Urine Microscopic WBC 2 0-3 /HPF Urine Squamous Epithelial Cells None seen <5 /hpf Urine Bacteria None seen None Seen /hpf Urine Mucus Few None Seen Urine Glucose Normal Normal mg/dL Lipase 34 12-53 U/L Assessment [id number] RESOLVING BILIARY COLIC AFEBRILE VSS ABD SOFT TENDER RUQ LFT ELEVATED R/O CBD STONE MRCP CONSIDER EMERGENT/ELECTIVE SURGERY BASED ON ONGOING EVAL Plan discussed with: Other PEPITO PAGE MD Nov 11, 2024 14:50
--- NOTE | 2024-11-11 15:42 | DVHPNRES ---
Progress Note Date Seen: Nov 11, 2024 Resident Creating Document: NENA CARRANZA RESIDENT Has the PT tested + for MRSA If YES, has PT been informed?: No Medical Necessity Reason Pt with a Central, PICC or Fol: No Subjective Review of Systems A 49-year-old male with no known past medical history presented to the ER today with pain that originated on the right upper quadrant radiates to the back and to the groin area. Patient stated that the pain started on the weekend when he ate a taco. Patient described the pain as rated 8/10 with an associated nausea and vomiting but no diarrhea. Past Medical History: None Past Surgical History: None Family history: noncontributory: Social history: lives at home, does not drink or smoke CT scan showed cholelithiasis and mild right hydronephrosis and left kidny stone. Gallbladder US showed cholelithiasis and pericholecystic fluid and Mild right hydronephrosis. Surgery was consulted, they consider MRCP due to abnormal liver panel, image was done, no stone in the CBD , pending new evaluation for possible surgery Objective vital signs Vital Sign Date Time Temp Pulse Resp B/P (MAP) Pulse Ox O2 Delivery O2 Flow Rate FiO2 11/11/24 13:00 98.8 63 20 113/62 (79) 97 98.8 11/11/24 08:00 Room Air* 0 21 Total Intake and Output 11/10/24 11/10/24 11/11/24 15:00 23:00 07:00 Intake Total 1000 ml Balance 1000 ml medications Current Medications Medications Dose Ordered Sig/Rachele Route Start Time Stop Time Status Last Admin Dose Admin Nitroglycerin 0.4 mg Q5MINP PRN SL 11/11/24 03:00 Morphine Sulfate 2 mg Q30M PRN IV 11/11/24 03:00 Ketorolac Tromethamine 15 mg Q6HPRN PRN IV 11/11/24 05:00 11/16/24 04:59 11/11/24 04:55 15 MG Lactated Ringer's 1,000 ml @ 100 mls/hr Q10H IV 11/11/24 05:00 11/11/24 05:00 100 MLS/HR Tamsulosin HCl 0.4 mg QPM PO 11/11/24 18:00 Pantoprazole Sodium 40 mg DAILY IV 11/11/24 10:00 11/11/24 09:08 40 MG Metronidazole 100 ml @ 100 mls/hr Q8HR IV 11/11/24 07:15 11/11/24 09:03 100 MLS/HR Ciprofloxacin 200 ml @ 200 mls/hr Q12HR@0900,2100 IV 11/11/24 09:00 11/11/24 11:36 200 MLS/HR Examination General Appearance: Alert, Oriented X3, Cooperative, HEENT: Atraumatic, PERRLA, EOMI, Mucous membrane moist/pink Respiratory: Clear to auscultation, Normal air movement Cardiovascular: Regular rate, Normal S1, Normal S2, No murmurs, no chest wall tenderness Abdominal: Tender in the RUQ, reduced bowel sounds present, no scars noted Extremities: No clubbing, No cyanosis, No edema, Normal pulses, No tenderness/swelling Skin: No rashes, No breakdown, No significant lesion Neuro: Normal gait, Normal speech, Strength at 5/5 X4 ext, Normal tone, Sensation intact, Cranial nerves 3-12 NL, Reflexes 2+ Psych/Mental Status: Mental status NL, Mood NL laboratory and microbiology Laboratory Tests 11/11/24 05:17 Test 11/11/24 05:17 Range/Units Serum Glucose 114 H 74-106 mg/dL Problem List/Assessment/Plan Problem List/Assessment/Plan Possible cholecystitis Cholesterol gallstones Choledocholithiasis ruled out Bilateral Nephrolithiasis Mild right hydronephrosis Acute Kidney injured vasomotor mediated NSTEMI possible type 2 Plan NPO Pain medication with ketorolac Pending new surgery reevaluation for possible procedure Ciprofloxacin plus metronidazole given a high WBC IV hydration with Ringer's lactate ECHO ordered Tamsulosin and mannitol due to kidney stone DVT prophylaxis: Lovenox Goal of care discussed for more than 30 minutes: Full code Case Case and plan discussed with Dr. Le Plan discussed with: Patient, Other (rn) My Orders My Orders Orders - NENA CARRANZA RESIDENT Procedure Category Date Status Time Metronidazole PHA 11/11/24 In Process 500mg/100ml (Flagyl 07:15 Ciprofloxacin PHA 11/11/24 In Process 400mg/200ml (Cipro Iv) 09:00 * Surgical Consult CONS 11/11/24 Transmitted Echo 2d Mode Cardiac US 11/11/24 Logged DOP 13:52 Mrcp Mri MRI 11/11/24 Logged 15:38 Date of Service: Nov 11, 2024 Billing Provider: HOWIE LE DO Common Visit Codes: [id number] INP/OBS CARE(HIGH) NENA CARRANZA RESIDENT Nov 11, 2024 15:42 HOWIE LE DO Nov 13, 2024 11:46
[2024-11-11] MEDS: MANNITOL 20% SOLN 100 gm/500ml 300 ML IV ONE (16:34)
[2024-11-11] MEDS: TAMSULOSIN HYDROCHLORIDE 0.4 MG CAP PO SCH (17:33)
--- NOTE | 2024-11-11 19:23 | DVH ---
MRI MRCP MRI reason they are getting HISTORY: rule out cbd stone COMPARISON: CT examination of the abdomen and pelvis of November 10, 2024 PROCEDURE: Multiplanar multisequence MRI images were obtained of the abdomen without intravenous cont rast Additional MIPS were obtained of the biliary system. FINDINGS: Patient has a large cholesterol stones in the gallbladder measuring approximately 1 0.5 cm. There are no stones in the common bile duct. The pancreatic duct is not dilated. Remaining portions o f the study the lung bases clear heart is unremarkable stomach mucosa is normal. Pancreas is generall y unremarkable. The adrenals and kidneys spleen are normal no evidence for gastrointestinal obstructi on. IMPRESSION: 1. Multiple large probable cholesterol stones in the gallbladder. No evidence for stones in the commo n bile duct or for obstruction of the pancreatic duct.
--- NOTE | 2024-11-11 23:44 | DVHINCON2 ---
DATE OF CONSULTATION: 11/11/2024 HISTORY OF PRESENT ILLNESS: This 49 years old coming in with right upper quadrant pain, now feeling better. No nausea, vomiting. No constipation, diarrhea. No hematemesis, melena. No bleeding per rectum. PAST MEDICAL HISTORY: No hypertension. No diabetes. PAST SURGICAL HISTORY: Nothing significant. PHYSICAL EXAMINATION: VITAL SIGNS: Afebrile, stable signs. HEENT: With no evidence of pallor, cyanosis, or jaundice. NECK: Supple, nontender with no thyromegaly or lymphadenopathy. CHEST AND LUNGS: Clear. HEART: Within normal limits. ABDOMEN: Soft, minimally tender in the right upper quadrant. No rebound. EXTREMITIES: Unremarkable. NEUROLOGIC: Intact. CLINICAL IMPRESSION: Rule out biliary colic, rule out acute cholecystitis. PLAN: Will be to observe him. He has elevated liver enzymes. Consider MRCP to rule out CBD stone and then consider surgery elective or emergent based upon ongoing evaluation. MD YAHIR Tello/MARY TID: [id number] RECEIPT: [id number] cc: Steph Ritter, Resident
--- NOTE | 2024-11-11 23:46 | DVHSR ---
APPROVED REPORT EXAM: Two-dimensional and M-mode echocardiogram with Doppler and color Doppler. Blood Pressure: 113/62 mmHg INDICATION NSTEMI RISK FACTORS Height: 5'9, Weight: 180 DIMENSIONS LVDd4.3 (3.8-5.7cm)LA (2D)3.6 (1.9-4.0cm)Aortic Root3.3 (2.0-3.7cm) LVDs3.0 (2.5-4.0cm)LA (MM) (1.9-4.0cm)Aortic Cusp Exc1.3 (1.5-2.0cm) EF (%) 58.0 (55-70%)Rt. Atrium4.1 (1.9-4.0cm)Asc. Aorta cm IVSd0.8 (0.7-1.1cm)RV (D)4.3 (1.8-2.4cm) PWd0.8 (0.7-1.1cm) Mitral Valve MitralMitral Stenosis E wave0.70m/sMV Mean GR.mmHg A wave0.63m/sMV Peak GR.90mmHg E/A ratio1.12D MVAcm2 DECEL [id number] 1/2 [place] Aortic Valve Aortic ValveAortic Stenosis V11.13m/Jenny Mean GR.4mmHg V21.30m/Jenny Peak GR.7mmHg LVOT Diameter1.9 (1.8-2.4cm)Doppler AVA2.46cm2 Pulmonic Valve V20.91m/s Tricuspid Valve TR Velocity2.43m/s [id number] Conclusion Normal biventricular size and systolic function. LVEF 55-60%. Normal wall motion. Normal wall thickne ss. Normal diastolic function. No significant valvular disease. Trace MR. Trace TR. Normal RVSP. IVC not assessed. No pericardial effusion.
[2024-11-12 01:00] VITALS: BP 117/73; PULSE 73; RESP 18; TEMP 98.1; O2SAT 99
[2024-11-12 07:19] LABS: Albumin 4.1 g/dL (3.2-4.8); Anion Gap 7 (5-15); Aspartate Aminotransferase 30 U/L (13-40); BUN/Creatinine Ratio 13.3 (10.0-20.0); Bilirubin, Total 0.6 mg/dL (0.2-1.0); Blood Urea Nitrogen 17 mg/dL (9-23); Calcium 9.3 mg/dL (8.7-10.4); Carbon Dioxide 29 mmol/L (20-31); Chloride 104 mmol/L (98-107); Glucose 87 mg/dL (74-106); Potassium 3.9 mmol/L (3.5-5.1); Sodium 140 mmol/L (136-145); Total Protein 6.8 g/dL (5.7-8.2)
[2024-11-12 07:29] LABS: Alanine Aminotransferase 48 U/L (7-40); Alkaline Phosphatase 117 U/L (46-116)
[2024-11-12 08:00] VITALS: PULSE 64; RESP 17; O2SAT 97
[2024-11-12 08:30] LABS: Hematocrit 37.6 % (41.0-53.0); Hemoglobin 12.7 g/dL (13.5-17.5); Mean Corpuscular Hemoglobin 28.3 pg (28.0-32.0); Mean Corpuscular Hgb Conc. 33.8 g/dL (32.0-36.0); Mean Corpuscular Volume 83.8 fL (80.0-100.0); Platelet Count (auto) 209 10^3/uL (140-450); Red Blood Cells 4.48 10^6/uL (4.5-5.90); White Blood Cell 7.6 10^3/uL (4.4-10.8)
[2024-11-12 08:38] LABS: Band Neutrophils % (manual) 0; Basophils % (manual) 0 (0.0-2.0); Blast Cells 0; Metamyelocytes % 0; Monocytes % (manual) 0 (0-12); Myelocytes % 0; Promyelocytes % 0; Reactive Lymphocytes 0
--- NOTE | 2024-11-12 08:59 | DVHPN2 ---
Progress Note Date Seen: Nov 12, 2024 Has the PT tested + for MRSA If YES, has PT been informed?: No Medical Necessity Reason Pt with a Central, PICC or Fol: No Objective vital signs Vital Sign Date Time Temp Pulse Resp B/P (MAP) Pulse Ox O2 Delivery O2 Flow Rate FiO2 11/12/24 01:00 98.1 73 18 117/73 (88) 99 98.1 11/11/24 20:00 Room Air* 0 21 Total Intake and Output 11/11/24 11/11/24 11/12/24 15:00 23:00 07:00 Intake Total 300 ml 400 ml 700 ml Balance 300 ml 400 ml 700 ml medications Current Medications Medications Dose Ordered Sig/Rachele Route Start Time Stop Time Status Last Admin Dose Admin Nitroglycerin 0.4 mg Q5MINP PRN SL 11/11/24 03:00 Morphine Sulfate 2 mg Q30M PRN IV 11/11/24 03:00 Ketorolac Tromethamine 15 mg Q6HPRN PRN IV 11/11/24 05:00 11/16/24 04:59 11/12/24 04:42 15 MG Lactated Ringer's 1,000 ml @ 100 mls/hr Q10H IV 11/11/24 05:00 11/11/24 05:00 100 MLS/HR Tamsulosin HCl 0.4 mg QPM PO 11/11/24 18:00 11/11/24 17:33 0.4 MG Pantoprazole Sodium 40 mg DAILY IV 11/11/24 10:00 11/12/24 08:25 40 MG Metronidazole 100 ml @ 100 mls/hr Q8HR IV 11/11/24 07:15 11/12/24 05:32 100 MLS/HR Ciprofloxacin 200 ml @ 200 mls/hr Q12HR@0900,2100 IV 11/11/24 09:00 11/12/24 08:25 200 MLS/HR laboratory and microbiology Laboratory Tests 11/12/24 08:03 11/12/24 04:50 Test 11/12/24 04:50 Range/Units Serum Glucose 87 74-106 mg/dL Problem List/Assessment/Plan Problem List/Assessment/Plan AFEBRILE VSS ABD SOFT NON TENDER RESOLVING BILIARY COLIC MRCP NEG FOR CBD STONE LFT ELEVATED TRENDING DOWN PT WANTS TO CONSIDER ELECTIVE SURGERY INDICATED CLEARED FOR DISCHARGE NURSE AT BEDSIDE Plan discussed with: Patient My Orders My Orders Orders - PEPITO PAGE MD Procedure Category Date Status Time Clear Liq Diet DIET 11/11/24 Transmitted Dinner PEPITO PAGE MD Nov 12, 2024 08:59
[2024-11-12 09:00] VITALS: BP 111/52; PULSE 64; RESP 17; TEMP 98.4; O2SAT 97
[2024-11-12] MEDS ORDERED: cefTRIAXone 1GM/50ML D5W 50 ML IV SCH (09:00)
[2024-11-12 09:10] LABS: Eosinophils % (manual) 24 (0-7); Lymphocytes % (manual) 21 (10.0-50.0); Platelet Estimate Adequate
[2024-11-12] MEDS ORDERED: TAMS0.4C39 PO (11:49)
[2024-11-12] MEDS ORDERED: CIPR-173 PO (11:49)
[2024-11-12] MEDS ORDERED: IBUP-1453 PO (11:49)
[2024-11-12 12:58] VITALS: BP 111/52; PULSE 64; RESP 17; TEMP 98.4; O2SAT 97
--- NOTE | 2024-11-12 17:41 | DVHDSRES ---
Discharge Summary Date of Admission Resident Creating Document: NENA CARRANZA RESIDENT Nov 11, 2024 at 02:57 Date of Discharge: Nov 12, 2024 Admitting Diagnosis intractable abdominal pain Labs/Diagnostic Data: Laboratory Results Test 11/12/24 08:03 11/12/24 04:50 11/11/24 05:17 11/10/24 21:25 White Blood Count 7.6 10^3/uL (4.4-10.8) Red Blood Count 4.48 10^6/uL (4.5-5.90) Hemoglobin 12.7 g/dL (13.5-17.5) Hematocrit 37.6 % (41.0-53.0) Mean Corpuscular Volume 83.8 fL (80.0-100.0) Mean Corpuscular Hemoglobin 28.3 pg (28.0-32.0) Mean Corpuscular Hemoglobin Concent 33.8 g/dL (32.0-36.0) Red Cell Distribution Width 13.0 % (11.8-14.3) Platelet Count 209 10^3/uL (140-450) Mean Platelet Volume 8.0 fL (6.9-10.8) Neutrophils (%) (Auto) % (37.0-80.0) Lymphocytes (%) (Auto) % (10.0-50.0) Monocytes (%) (Auto) % (0.0-12.0) Basophils (%) (Auto) % (0.0-2.0) Neutrophils # (Auto) 10 ^3/uL (1.6-8.6) Lymphocytes # (Auto) 10 ^3/uL (0.4-5.4) Monocytes # (Auto) 10 ^3/uL (0-1.3) Differential Total Cells Counted 100.0 (100) Neutrophils % (Manual) 55 (37.0-80.0) Band Neutrophils % (Manual) 0 Lymphocytes % (Manual) 21 (10.0-50.0) Monocytes % (Manual) 0 (0-12) Eosinophils % (Manual) 24 (0-7) Basophils % (Manual) 0 (0.0-2.0) Metamyelocytes % (manual) 0 Myelocytes % (Manual) 0 Promyelocytes % (Manual) 0 Blast Cells % (Manual) 0 Reactive Lymphocytes 0 Platelet Estimate Adequate Sodium Level 140 mmol/L (136-145) Potassium Level 3.9 mmol/L (3.5-5.1) Chloride Level 104 mmol/L (98-107) Carbon Dioxide Level 29 mmol/L (20-31) Anion Gap 7 (5-15) Blood Urea Nitrogen 17 mg/dL (9-23) Creatinine 1.28 mg/dL (0.700-1.30) Glomerular Filtration Rate Calc 69 mL/min (>90) BUN/Creatinine Ratio 13.3 (10.0-20.0) Serum Glucose 87 mg/dL (74-106) Calcium Level 9.3 mg/dL (8.7-10.4) Total Bilirubin 0.6 mg/dL (0.2-1.0) Aspartate Amino Transferase (AST) 30 U/L (13-40) Alanine Aminotransferase (ALT) 48 U/L (7-40) Alkaline Phosphatase 117 U/L (46-116) Total Protein 6.8 g/dL (5.7-8.2) Albumin 4.1 g/dL (3.2-4.8) Eosinophils (%) (Auto) 4.9 % (0.0-7.0) Eosinophils # (Auto) 0.5 10 ^3/uL (0-0.8) Basophils # (Auto) 0 10 ^3/uL (0-0.2) Nucleated Red Blood Cells 0.0 % Prothrombin Time 9.7 sec (9.3-11.8) Prothrombin Time INR 0.91 (0.9-1.15) Activated Partial Thromboplast Time 27.3 SEC (24.5-34.5) Lactic Acid Level 1.3 mmol/L (0.4-2.0) C-Reactive Protein High Sensitivity 2.77 mg/dL (<1.0) Troponin I High Sensitivity 64 ng/L (</=54) Test 11/10/24 17:34 11/10/24 15:57 Urine Color Yellow (Yellow) Urine Clarity Clear (Clear) Urine pH 6.0 (5.0-9.0) Urine Specific [place] 1.039 (1.001-1.035) Urine Protein 1+ (Negative) Urine Ketones Trace (Negative) Urine Blood 2+ /uL (Negative) Urine Nitrite Negative (Negative) Urine Bilirubin Negative (Negative) Urine Urobilinogen Normal mg/dL (Negative) Urine Leukocyte Esterase Negative /uL (Negative) Urine RBC 17 /hpf (0 - 3) Urine Microscopic WBC 2 /HPF (0-3) Urine Squamous Epithelial Cells None seen /hpf (<5) Urine Bacteria None seen /hpf (None Seen) Urine Mucus Few (None Seen) Urine Glucose Normal mg/dL (Normal) Lipase 34 U/L (12-53) Other Laboratory Tests 11/12/24 08:03 11/12/24 04:50 Brief Hx & Hospital Course: The patient is a 49-year-old male with no significant past medical or surgical history who presented to the emergency department with acute right upper quadrant abdominal pain radiating to the back and groin, rated 8/10, and associated with nausea and vomiting. Imaging revealed cholelithiasis with pericholecystic fluid, mild right hydronephrosis, and a left renal calculus. No stones were seen in the common bile duct, and there was concern for acute cholecystitis and vasomotor-mediated acute kidney injury. A possible type 2 NSTEMI was also considered, ECHO was normal. Management included NPO status, pain control with ketorolac, empiric antibiotics (ciprofloxacin and metronidazole), IV hydration with Ringers lactate, and DVT prophylaxis with Lovenox. Tamsulosin and mannitol were initiated to facilitate passage of kidney stones. Surgery consulted, normal MRCP, elective cholecystectomy decide by the patient The patient remained hemodynamically stable throughout the hospitalization. Given the presence of gallstones with pericholecystic fluid and a complex renal stone burden, the case was discussed in detail with the surgical team for further outpatient evaluation. The patient was discharged in stable condition with instructions for close follow-up with general surgery, urology, and cardiology. He was advised to maintain oral hydration, continue prescribed medications, and return to the ED if he developed worsening pain, fever, chest pain, or urinary symptoms. Case discussed with Dr Rutherford Consults/Reason for consult surgery due to cholelithiasis Operations or Procedures MRI MRCP MRI reason they are getting HISTORY: rule out cbd stone COMPARISON: CT examination of the abdomen and pelvis of November 10, 2024 PROCEDURE: Multiplanar multisequence MRI images were obtained of the abdomen without intravenous contrast Additional MIPS were obtained of the biliary system. FINDINGS: Patient has a large cholesterol stones in the gallbladder measuring approximately 1 0.5 cm. There are no stones in the common bile duct. The pancreatic duct is not dilated. Remaining portions of the study the lung bases clear heart is unremarkable stomach mucosa is normal. Pancreas is generally unremarkable. The adrenals and kidneys spleen are normal no evidence for gastrointestinal obstruction. IMPRESSION: 1. Multiple large probable cholesterol stones in the gallbladder. No evidence for stones in the common bile duct or for obstruction of the pancreatic duct. Condition at Discharge: Stable Final Diagnosis/Problems List Intractable abdominal pain Cholesterol gallstones Choledocholithiasis ruled out Bilateral Nephrolithiasis Mild right hydronephrosis MORTEZA due to VMN NSTEMI possible type 2 Discharge Disposition: Home Discharge Instruct/Medications Diet: See Comment Diet comment: soft diet, no fat Activity: Light activity Follow Up/Referral: [facility], f/u dr bernal surgery for elective cholecystectomy Medications: see prescription Discharge Statement: "Patient was advised to return to the ER or call 911 if any headaches, dizziness, shortness of breath, chest pain, abdominal pain, bleeding, fevers, or worsening of medical condition. Patient was counseled about treatment plan, medications, possible side effects, patientverbalized understanding. All questions were answered to the best of my ability. This discharge took greater then 30 minutes in planning, reviewing documentation, counseling the patient, and discussing with other team members." ASSESSMENT ASSESSMENT Assessment cholelithiasis kidney stone NENA CARRANZA RESIDENT Nov 12, 2024 17:41
== END 2024-11-12 14:05 | disposition home or self-care (01) ==
LOC: ER 15:26 → OVERFLOW 11-11 02:57 → WEST WING 11-11 05:25
PROVIDERS: ADMIT Internal Medicine; ATTEND Internal Medicine
DX: K80.20 Calculus of gallbladder without cholecystitis without obstruction (principal); N17.0 Acute kidney failure with tubular necrosis; I21.A1 Myocardial infarction type 2; N13.2 Hydronephrosis with renal and ureteral calculous obstruction; N21.0 Calculus in bladder; Z79.899 Other long term (current) drug therapy; N20.0 Calculus of kidney
CPT/HCPCS: 36415; 74176; 74181; 76705; 76775; 80053; 81001; 83605; 83690; 84484; 85007; 85025; 85027; 85610; 85730; 86141; 86850; 86900; 86901; 93306; 96361; 96374; 96375; G0378; J1885; J2405; J2470; J3490